=== PATIENT | male | born 1985 | race Caucasian/White ===

== ENCOUNTER 2020-03-28 23:26 | Emergency (ER) | payer SELFPAY ==
[~2020-03-28] VITALS: Ht 182.9 cm; Wt 77.1 kg
[2020-03-29] MEDS ORDERED: TETANUS-DIPTH-ACEL PERTUSSIS 0.5ML SYR Tdap IM ONE (01:15)
[2020-03-29 01:46] VITALS: BP 126/78
== END 2020-03-29 03:14 | disposition home or self-care (01) ==
LOC: ER 23:28
DX: S61.511A Laceration without foreign body of right wrist, initial encounter (principal); S61.213A Laceration without foreign body of left middle finger without damage to nail, initial encounter; S61.217A Laceration without foreign body of left little finger without damage to nail, initial encounter; W25.XXXA Contact with sharp glass, initial encounter; Y93.89 Activity, other specified; Y92.89 Other specified places as the place of occurrence of the external cause; Y99.8 Other external cause status
CPT/HCPCS: 12004; 73110; 73130; 90471; 90715